=== PATIENT | female | born 1965 | race Caucasian/White ===

== ENCOUNTER 2018-06-13 18:46 | Emergency (ER) | payer BC ==
[2018-06-13 19:08] VITALS: BP 120/74
--- NOTE | 2018-06-13 19:36 | UC ---
Knee Pain HPI - HPI Summary HPI Summary: pain in the knee since January, not seen physician , today knee worsened when bending over - History of Current Complaint Chief Complaint: UCLowerExtremity Stated Complaint: RIGHT KNEE INJURY Time Seen by Provider: 06/13/18 18:48 Hx Obtained From: Patient ?: No Onset/Duration: Gradual Onset, Lasting Weeks Severity Initially: Moderate Severity Currently: Moderate Pain Intensity: 8 Character: Sharp Aggravating Factor(s): Movement, Weight Bearing Associated Signs And Symptoms: Positive: Swelling Able to Bear Weight: No - Allergies/Home Medications Allergies/Adverse Reactions: Allergies Allergy/AdvReac Type Severity Reaction Status Date / Time No Known Allergies Allergy Verified 06/13/18 19:08 Home Medications: Home Medications Ibuprofen TAB* [Advil TAB*] 200 mg PO ONCE 06/13/18 [History Confirmed 06/13/18] Levothyroxine TAB* [Synthorid 112 MCG TAB*] 112 mcg PO DAILY 06/13/18 [History Confirmed 06/13/18] predniSONE TAB* [Deltasone TAB*] 5 mg PO DAILY 06/13/18 [History Confirmed 06/13] PMH/Surg Hx/FS Hx/Imm Hx Previously Healthy: Yes - Surgical History Surgical History: Yes Surgery Procedure, Year, and Place: rhinoplasty - Social History Alcohol Use: Daily Alcohol Amount: 1 drink five nights a week Substance Use Type: None Smoking Status (MU): Never Smoked Tobacco Review of Systems Constitutional: Negative Skin: Negative Eyes: Negative ENT: Negative Respiratory: Negative Cardiovascular: Negative Gastrointestinal: Negative Genitourinary: Negative Musculoskeletal: Other: - pain with flexion and extension of the knee Is Patient Immunocompromised?: No All Other Systems Reviewed And Are Negative: Yes Physical Exam Triage Information Reviewed: Yes Appearance: Well-Appearing, Pain Distress Vital Signs: Initial Vital Signs Temp 36.9 C 06/13/18 18:57 Pulse 74 06/13/18 18:57 Resp 18 06/13/18 18:57 BP 120/74 06/13/18 18:57 Pulse Ox 100 06/13/18 18:57 Vital Signs Reviewed: Yes Eye Exam: Normal Eyes: Positive: Conjunctiva Clear Neck exam: Normal Neck: Positive: Supple Respiratory: Positive: Chest non-tender Musculoskeletal: Positive: Other: - limited ability to extend right knee, secondary to pain, some mild swelling, no erythema present, patient unable to weight bear, no obvious knee effusion is seen flexion to 90 extension to 110 degrees, unable to fully examine secondary to pain Knee Pain Course/Dx - Differential Dx/Diagnosis Provider Diagnoses: right knee internal derangement, possible torn meniscus Discharge - Sign-Out/Discharge Documenting (check all that apply): Patient Departure - Discharge Plan Condition: Fair Disposition: HOME Patient Education Materials: Swollen Knee Joint (ED) Referrals: Lisa Hernandez [Primary Care Provider] - Tutu Joiner MD [Medical Doctor] - - Billing Disposition and Condition Condition: FAIR Disposition: Home
--- NOTE | 2018-06-13 19:59 | RAD ---
INDICATION: Knee pain after lifting heavy object and feeling a "pop" COMPARISON: None TECHNIQUE: 4 view radiograph of the right knee. FINDINGS: The visualized bones are well-corticated and properly aligned. The joint spaces are properly maintained. There is no radiographic evidence of joint effusion. There is no acute fracture, dislocation or other focal bony abnormality. IMPRESSION: Normal knee radiograph as described above. If the patient's symptoms persist, follow-up imaging is recommended.
== END 2018-06-13 20:37 | disposition home or self-care (01) ==
LOC: UCCORT 18:46
DX: M23.91 Unspecified internal derangement of right knee (principal); X58.XXXA Exposure to other specified factors, initial encounter; Y92.9 Unspecified place or not applicable
CPT/HCPCS: 99213; G0463